=== PATIENT | female | born 1990 | race Caucasian/White ===

== ENCOUNTER 2018-12-07 04:00 | Emergency (ER) | payer BC, MEDICAID ==
[~2018-12-07] VITALS: Ht 175.3 cm; Wt 63.5 kg
--- NOTE | 2018-12-07 04:15 | Emergency Room Report ---
History of Present Illness General Chief Complaint: Multiple Trauma/Fall Source: Patient, EMS (Emmanuel Grider MD) Present Illness HPI The patient apparently was going to a strip bar and got out of a car and stumbled. The patient considers himself as she and she was drinking alcohol. She is complaining about the spins and uncontrollable vomiting. She denies any head trauma. She also denies any extremity pain. She denies vomiting blood or coffee grounds. She was transported by EMS. No fevers, chills, chest pain, palpitations, diarrhea, dysuria, abdominal pain, shortness of breath, depression, headache. (Emmanuel Grider MD) Allergies: Coded Allergies: No Known Allergies (Unverified , 12/07/18) Patient History Past Medical History: see triage record Social History: Reports: alcohol use Social History Narrative Was at a bar Reviewed Nursing Documentation: PMH: Agreed; PSxH: Agreed (Emmanuel Grider MD) Review of Systems All Other Systems: negative except mentioned in HPI (Emmanuel Grider MD) Physical Exam Vital Signs Date Time Temp Pulse Resp B/P (MAP) Pulse Ox O2 Delivery O2 Flow Rate FiO2 12/07/18 04:01 98.4 72 16 100/68 (79) 98 Room Air Sp02 EP Interpretation: reviewed, normal General Appearance: other - alcohol Head: normocephalic, atraumatic Eyes: bilateral eye PERRL - dilated pupils, bilateral eye EOMI, bilateral eye Scleral Injection ENT: moist mucus membranes - No lingual trauma Neck: full range of motion, supple, no bony tend Respiratory: chest non-tender, lungs clear, normal breath sounds Cardiovascular #1: regular rate, rhythm Cardiovascular #2: 2+ radial (R) Gastrointestinal: normal inspection, normal bowel sounds, non tender, no mass, non-distended Musculoskeletal: back normal, digits/nails normal, normal range of motion Neurologic: alert, motor strength/tone normal, DTRs symmetric, sensory intact, other - Slurred speech and truncal ataxia, nystagmus, oriented - X2 Psychiatric: other - Lethargic Skin: no rash (Emmanuel Grider MD) Medical Decision Making Diagnostic Impression: Primary Impression: Alcohol intoxication Qualified Codes: F10.929 - Alcohol use, unspecified with intoxication, unspecified ER Course The patient complains of spends after alcohol ingestion with nausea and unsteady gait. Differential includes acute intoxication with alcohol, other substance abuse, electrolyte imbalance amongst others. The patient will be evaluated with labs. The patient will receive IV hydration, Pepcid and Zofran. Elevated BAL. Ambulatory but still ataxic. No more vomiting. Signed out to Dr. Lopez. Laboratory Tests Test 12/07/18 04:52 White Blood Count 10.3 K/UL (4.8-10.8) Red Blood Count 5.14 M/UL (4.20-5.40) Hemoglobin 15.0 G/DL (12.0-16.0) Hematocrit 44.1 % (37.0-47.0) Mean Corpuscular Volume 86 FL (80-99) Mean Corpuscular Hemoglobin 29.2 PG (27.0-31.0) Mean Corpuscular Hemoglobin Concent 34.0 G/DL (32.0-36.0) Red Cell Distribution Width 10.5 % (11.6-14.8) L Platelet Count 342 K/UL (150-450) Mean Platelet Volume 6.8 FL (6.5-10.1) Neutrophils (%) (Auto) 78.6 % (45.0-75.0) H Lymphocytes (%) (Auto) 16.6 % (20.0-45.0) L Monocytes (%) (Auto) 3.9 % (1.0-10.0) Eosinophils (%) (Auto) 0.4 % (0.0-3.0) Basophils (%) (Auto) 0.6 % (0.0-2.0) Sodium Level 141 MMOL/L (136-145) Potassium Level 3.8 MMOL/L (3.5-5.1) Chloride Level 105 MMOL/L (98-107) Carbon Dioxide Level 27 MMOL/L (21-32) Anion Gap 9 mmol/L (5-15) Blood Urea Nitrogen 15 mg/dL (7-18) Creatinine 0.9 MG/DL (0.55-1.30) Estimate Glomerular Filtration Rate > 60 mL/min (>60) Glucose Level 95 MG/DL (74-106) Calcium Level 8.9 MG/DL (8.5-10.1) Total Bilirubin 0.1 MG/DL (0.2-1.0) L Aspartate Amino Transferase (AST) 19 U/L (15-37) Alanine Aminotransferase (ALT) 11 U/L (12-78) L Alkaline Phosphatase 81 U/L (46-116) Total Protein 7.8 G/DL (6.4-8.2) Albumin 4.9 G/DL (3.4-5.0) Globulin 2.9 g/dL Albumin/Globulin Ratio 1.7 (1.0-2.7) Lipase 254 U/L (73-393) (Emmanuel Grider MD) ER Course Please note that at the time patient has been pending further sobering effect. She has awakened and requesting to go home awake alert ambulatory without significant deficit and stable for close follow-up (Tootie Lopez DO) Rhythm Strip Diag. Results EP Interpretation: yes Rhythm: NSR, no PVC's, no ectopy (Emmanuel Grider MD) Last Vital Signs Date Time Temp Pulse Resp B/P (MAP) Pulse Ox O2 Delivery O2 Flow Rate FiO2 12/07/18 04:33 72 16 Room Air 12/07/18 04:33 98.4 100/68 98 Status: improved (Emmanuel Grider MD) Status: improved (Tootie Lopez DO) Disposition: HOME, SELF-CARE Condition: Improved Emmanuel Grider MD Dec 07, 2018 04:15 Tootie Lopez DO Dec 07, 2018 08:30
--- NOTE | 2018-12-07 04:28 | NUR ---
ED Nurse Note: Pt from home, ambulatory. When receiving report, was told that pt was intoxicated with ETOH and fell out of car. Will assess and carry out ER MD's orders.
[2018-12-07 04:33] VITALS: BP 100/68
[2018-12-07] MEDS ORDERED: Ondansetron ODT 8mg tab ONE (05:02)
[2018-12-07 06:05] LABS: BASOPHILS % (AUTO) 0.6 % (0.0-2.0); EOSINOPHILS % (AUTO) 0.4 % (0.0-3.0); HEMATOCRIT 44.1 % (37.0-47.0); LYMPHOCYTES % (AUTO) 16.6 % (20.0-45.0); MEAN CORPUSCULAR VOLUME 86 FL (80-99); MONOCYTES % (AUTO) 3.9 % (1.0-10.0); NEUTROPHILS % (AUTO) 78.6 % (45.0-75.0); PLATELET COUNT 342 K/UL (150-450); RED BLOOD COUNT 5.14 M/UL (4.20-5.40); RED CELL DISTRIBUTION WIDTH 10.5 % (11.6-14.8); WHITE BLOOD COUNT 10.3 K/UL (4.8-10.8)
[2018-12-07 06:20] LABS: ANION GAP 9 mmol/L (5-15); BLOOD UREA NITROGEN 15 mg/dL (7-18); CALCIUM 8.9 MG/DL (8.5-10.1); CARBON DIOXIDE 27 MMOL/L (21-32); CHLORIDE 105 MMOL/L (98-107); CREATININE 0.9 MG/DL (0.55-1.30); POTASSIUM 3.8 MMOL/L (3.5-5.1); SODIUM 141 MMOL/L (136-145)
[2018-12-07 06:25] LABS: ALANINE AMINOTRANSFERASE 11 U/L (12-78); ALBUMIN 4.9 G/DL (3.4-5.0); ALBUMIN/GLOBULIN RATIO 1.7 (1.0-2.7); ALKALINE PHOSPHATASE 81 U/L (46-116); ASPARTATE AMINO TRANSFERASE 19 U/L (15-37); BILIRUBIN,TOTAL 0.1 MG/DL (0.2-1.0)
[2018-12-07 07:30] VITALS: BP 112/72
--- NOTE | 2018-12-07 07:30 | NUR ---
ED Nurse Note: REPORT RECEIVED FROM PETTY GAMEZ. PT SLEEPING PEACEFULLY IN BED IN NAD. AOX4. CALM AND COOPERATIVE. VSS.
--- NOTE | 2018-12-07 07:32 | NUR ---
ED Nurse Note: PER PM RN, PT REFUSED UA. DR HAMPTON AWARE.
--- NOTE | 2018-12-07 08:40 | NUR ---
ED Nurse Note: PT AWAKE. AOX4. CALM AND COOPERATIVE. PT AMBULATED INDEPENDENTLY TO AND FROM BATHROOM WITH STEADY GAIT.
--- NOTE | 2018-12-07 09:13 | NUR ---
ED Nurse Note: PT LAYING PEACEFULLY IN BED IN NAD. AOX4. DISCHARGE PAPERWORK EXPLAINED TO PT. PT VERBALIZES UNDERSTANDING AND ALL QUESTIONS ANSWERED. DISCHARGE PAPERWORK GIVEN TO PT, IV AND ID WRISTBAND REMOVED. [employer] PROVIDED FOR PT TO HOME ADDRESS. PT WALKED OUT OF ER WITH STEADY GAIT WITH ALL BELONGINGS.
[2018-12-07 09:14] VITALS: BP 110/76
== END 2018-12-07 09:13 | disposition home or self-care (01) ==
LOC: EDBD 04:00 → EMR 04:17
DX: F10.929 Alcohol use, unspecified with intoxication, unspecified (principal)
CPT/HCPCS: 36415; 80053; 83690; 85025; 96361; 96374; 96375; 99284; J2405; S0028